=== PATIENT | male | born 1965 | race African-American/Black ===

== ENCOUNTER 2017-08-23 10:47 | Inpatient (IN) | payer BC ==
[2017-08-23 12:11] VITALS: BMI 29.2
--- NOTE | 2017-08-23 14:53 | HP ---
CIWA Score - CIWA Score Nausea/Vomitin Muscle Tremors: 3 Anxiety: 3 Agitation: 3 Paroxysmal Sweats: 2 Orientation: 0-Oriented Tacttile Disturbances: 2-Mild Itch/Numbness/Burn Auditory Disturbances: 2-Mild Harshness/Frighten Visual Disturbances: 2-Mild Sensitivity Headache: 2-Mild CIWA-Ar Total Score: 22 Admission ROS [facility] - HPI Chief Complaint: I NEED HELP TO STOP DRINKING ALCOHOL,CRACK,PCP Allergies/Adverse Reactions: Allergies Allergy/AdvReac Type Severity Reaction Status Date / Time No Known Allergies Allergy Verified 08/23/17 14:40 History of Present Illness: THIS 51 YEARS OLD MALE WITH ALCOHOL,CRACK,CRYSTAL METH,SEEKING DETOX,WITHDRAWAL SYMPTOM,LAST TREATMENT 2015 IN [place], HISTORY OF HTN NON COMPLIANCE HIV SINCE 1984 ANXIETY,DEPRESSION LONGEST PERIOD OF SOBRIETY 2 MONTHS Exam Limitations: No Limitations - Ebola screening Have you traveled outside of the country in the last 21 days: No (N) Have you had contact with anyone from an Ebola affected area: No Have you been sick,other than usual withdrawal symptoms: No - Review of Systems Constitutional: Loss of Appetite, Malaise, Night Sweats, Changes in sleep, Weakness, Unintentional Wgt. Loss EENT: reports: Nose Congestion Respiratory: reports: No Symptoms reported Cardiac: reports: Palpitations GI: reports: Diarrhea, Nausea, Vomiting, Abdominal cramping : reports: No Symptoms Reported Musculoskeletal: reports: Back Pain, Muscle Pain Integumentary: reports: Dryness Neuro: reports: Tremors Endocrine: reports: No Symptoms Reported Hematology: reports: No Symptoms Reported, Other Psychiatric: reports: No Sypmtoms Reported, Judgement Intact, Mood/Affect Appropiate, Orientated x3, Anxious, Depressed Patient History - Patient Medical History Hx Anemia: No Hx Asthma: No Hx Chronic Obstructive Pulmonary Disease (COPD): No Hx Cancer: No Hx Cardiac Disorders: No Hx Congestive Heart Failure: No Hx Hypertension: Yes (NON COMPLIANCE) Hx Hypercholesterolemia: No Hx Pacemaker: No HX Cerebrovascular Accident: No Hx Seizures: No Hx Dementia: No Hx Diabetes: No Hx Gastrointestinal Disorders: No Hx Liver Disease: Yes (HEPATITIS C) Hx Genitourinary Disorders: No Hx Sexually Transmitted Disorders: Yes (SYHILIS) Hx Renal Disease (ESRD): No Hx Thyroid Disease: No Hx Human Immunodeficiency Virus (HIV): Yes (SINCE 1984) Hx Hepatitis C: Yes (TREATED) Hx Depression: Yes (ANXIETY) Hx Suicide Attempt: No Hx Bipolar Disorder: No Hx Schizophrenia: No Other Medical History: NO SUICIDAL,NOHOMICIDAL - Patient Surgical History Past Surgical History: No - PPD History Previous Implant?: Yes Documented Results: Negative w/o proof Implanted On Prior [facility] Admission?: No PPD to be Administered?: Yes - Smoking Cessation Smoking history: Never smoked - Substance & Tx. History Hx Alcohol Use: Yes Hx Substance Use: Yes Substance Use Type: Alcohol, Cocaine - Substances Abused Alcohol Route: Oral Frequency: Daily Amount used: 6PK AND UP BEER Age of first use: 20 Date of Last Use: 08/23/17 Marijuana/Hashish Route: Smoking Frequency: 1-3 times last 30 days Amount used: 1 joint Age of first use: 20 Date of Last Use: 08/16/17 Crystal Meth Route: Injection Frequency: Daily Amount used: 1 bag Age of first use: 49 Date of Last Use: 08/21/17 Family Disease History - Family Disease History Family History: Denies Admission Physical Exam [facility] - Vital Signs Vital Signs: Vital Signs - 24 hr 08/23/17 12:09 Temperature 98.2 F Pulse Rate 96 H Respiratory 20 Rate Blood Pressure 165/132 - Physical General Appearance: Yes: Moderate Distress, Tremorous, Irritable, Sweating, Anxious HEENTM: Yes: Normal ENT Inspection, PRECIOUS, Pharynx Normal Respiratory: Yes: Lungs Clear, Normal Breath Sounds, No Respiratory Distress Neck: Yes: Within Normal Limits, Supple, Trachea in good position Breast: Yes: Within Normal Limits Cardiology: Yes: Within Normal Limits, Regular Rhythm, Regular Rate, S1, S2 Abdominal: Yes: Within Normal Limits, Normal Bowel Sounds, Non Tender, Soft Genitourinary: Yes: Within Normal Limits Back: Yes: Muscle Spasm Musculoskeletal: Yes: Back pain, Muscle Pain Extremities: Yes: Tremors (VARICOSE VEIN OF RIGHT LEG), Inflammation Neurological: Yes: medical collections II-XII NML intact, Fully Oriented, Alert, Motor Strength 5/5 Integumentary: Yes: Dry, Other (CELLULITIS OF LEFT FOOT AND RIGHT LEG) Lymphatic: Yes: Within Normal Limits - Diagnostic (1) Alcohol dependence with uncomplicated withdrawal Current Visit: Yes Status: Acute (2) Methamphetamine abuse Current Visit: Yes Status: Acute (3) HIV (human immunodeficiency virus infection) Current Visit: Yes Status: Acute (4) Cellulitis of left foot Current Visit: Yes Status: Acute (5) Weight loss Current Visit: Yes Status: Acute (6) Hepatitis C Current Visit: Yes Status: Acute (7) Anxiety and depression Current Visit: Yes Status: Acute Cleared for Admission [facility] - Detox or Rehab [facility] Level of Care: Medically Managed Detox Regimen/Protocol: Librium S Breath Alcohol Content Breath Alcohol Content: 0 Urine Drug Screen - Results Drug Screen Negative: No Urine Drug Screen Results: MET-Methamphetamine
[2017-08-23] MEDS ORDERED: MAGNESIUM HYDROX 2400MG/30ML ORAL SUSPENSION 30 ML CUP PO PRN (15:08)
[2017-08-23] MEDS ORDERED: chlordiazePOXIDE HCL 25 MG CAPSULE PO PRN (15:08)
[2017-08-23] MEDS ORDERED: IBUPROFEN 400 MG TABLET (FP) PO PRN (15:08)
[2017-08-23] MEDS ORDERED: hydrOXYzine PAMOATE 50 MG CAPSULE (FP) PO PRN (15:08)
[2017-08-23] MEDS ORDERED: MAGNESIUM CITRATE 300 ML BOTTLE PO PRN (15:08)
[2017-08-23] MEDS ORDERED: chlordiazePOXIDE HCL 25 MG CAPSULE PO ONE (15:08)
[2017-08-23] MEDS ORDERED: guaiFENesin/D-METHORPHAN HB 10 ML UNIT-DOSE CUPS PO PRN (15:08)
[2017-08-23] MEDS ORDERED: P-EPHED 60MG/TRIPROLIDI 2.5MG TABLET PO PRN (15:08)
[2017-08-23] MEDS ORDERED: ACETAMINOPHEN 325 MG TABLET (FP) PO PRN (15:08)
[2017-08-23] MEDS ORDERED: MAG HYDROX/AL HYDROX/SIMETH 30 ML UNIT-DOSE CUP PO PRN (15:08)
[2017-08-23] MEDS ORDERED: MENTHOL/PHENOL 1 EACH UD MM PRN (15:08)
[2017-08-23] MEDS ORDERED: LOPERAMIDE HCL 2 MG CAPSULE PO PRN (15:08)
[2017-08-23] MEDS: CEPHALEXIN MONOHYDRATE 500 MG CAPSULE (UD) PO SCH ×2 (17:36→23:05)
[2017-08-23] MEDS: chlordiazePOXIDE HCL 25 MG CAPSULE PO SCH ×2 (17:36→22:34)
[2017-08-23 22:24] LABS: URINE APPEARANCE CLEAR; URINE BILIRUBIN NEGATIVE (NEGATIVE); URINE BLOOD NEGATIVE (NEGATIVE); URINE COLOR STRAW; URINE GLUCOSE (UA) NEGATIVE (NEGATIVE); URINE KETONE NEGATIVE (NEGATIVE); URINE LEUK ESTERASE NEGATIVE (NEGATIVE); URINE NITRITE NEGATIVE (NEGATIVE); URINE PROTEIN NEGATIVE (NEGATIVE); URINE UROBILINOGEN NEGATIVE mg/dL (0.2-1.0)
[2017-08-23] MEDS: THIAMINE HCL 100 MG TABLET (FP) PO SCH (22:34)
[2017-08-24] MEDS: chlordiazePOXIDE HCL 25 MG CAPSULE PO SCH ×4 (05:09→23:04)
[2017-08-24] MEDS: CEPHALEXIN MONOHYDRATE 500 MG CAPSULE (UD) PO SCH ×4 (05:09→23:03)
[2017-08-24] MEDS: amLODIPine BESYLATE 5 MG TABLET (FP) PO SCH ×2 (05:35→10:47)
[2017-08-24] MEDS: cloNIDine HCL 0.1 MG TABLET PO PRN ×2 (07:27→18:36)
[2017-08-24] MEDS ORDERED: PRENATAL VITAMINS W/ FOLIC ACID TABLET (FP) PO SCH (10:00)
[2017-08-24] MEDS ORDERED: PATIENT'S OWN MEDICATION (NON-FORMULARY) (Emtricitabine/Tenofovir [Truvada -] 1 TAB) PO SCH (10:00)
[2017-08-24 10:11] LABS: HEMATOCRIT 40.4 % (35.4-49); HEMOGLOBIN 13.9 GM/dL (11.7-16.9); MCH 28.6 pg (25.7-33.7); MCHC 34.5 g/dl (32.0-35.9); MEAN PLT VOLUME 7.5 fl (7.5-11.1); PLATELET COUNT 352 K/MM3 (134-434); RBC 4.87 M/mm3 (4.00-5.60); RDW 14.1 % (11.9-15.9); WHITE BLOOD COUNT 5.3 K/mm3 (4.0-10.0)
[2017-08-24 10:18] LABS: ANION GAP 9 (8-16); BLOOD UREA NITROGEN 10 mg/dL (7-18); CALCIUM 8.9 mg/dL (8.5-10.1); CHLORIDE 99 mmol/L (98-107); CO2 27 mmol/L (21-32); GLUCOSE,RANDOM 94 mg/dL (74-106); POTASSIUM 4.2 mmol/L (3.5-5.1); SODIUM 135 mmol/L (136-145)
[2017-08-24 10:23] LABS: ALK PHOS 91 U/L (45-117); BILIRUBIN,TOTAL 0.5 mg/dL (0.2-1.0); CREATININE 1.1 mg/dL (0.7-1.3); SGOT/AST 16 U/L (15-37); SGPT/ALT 19 U/L (12-78); TOT PROT 7.5 g/dl (6.4-8.2)
[2017-08-24] MEDS: PATIENT'S OWN MEDICATION (NON-FORMULARY) (Raltegravir [Isentress] 400 MG) PO SCH ×3 (10:25→23:04)
[2017-08-24] MEDS: PATIENT'S OWN MEDICATION (NON-FORMULARY) (Etravirine [Intelence -] 200 MG) PO SCH ×3 (10:26→18:35)
--- NOTE | 2017-08-24 11:20 | EKG ---
Test Reason : Blood Pressure : / mmHG Vent. Rate : 085 BPM Atrial Rate : 085 BPM P-R Int : 160 ms QRS Dur : 092 ms QT Int : 390 ms P-R-T Axes : 067 -06 013 degrees QTc Int : 464 ms NORMAL SINUS RHYTHM VOLTAGE CRITERIA FOR LEFT VENTRICULAR HYPERTROPHY CANNOT RULE OUT SEPTAL INFARCT , AGE UNDETERMINED ABNORMAL ECG NO PREVIOUS ECGS AVAILABLE Confirmed by ELINOR JALLOH MD ([id number]) on 08/24/2017 11:20:23 AM Referred By: Confirmed By:ELINOR JALLOH MD
--- NOTE | 2017-08-24 12:36 | PN ---
[facility] CIWA - CIWA Score Nausea/Vomitin-No Nausea/No Vomiting Muscle Tremors: 4-Moderate,w/Arms Extend Anxiety: 4-Mod. Anxious/Guarded Agitation: 4-Moderately Restless Paroxysmal Sweats: 1-Minimal Palms Moist Orientation: 0-Oriented Tacttile Disturbances: 3-Moderate Itch/Numb/Burn Auditory Disturbances: 0-None Visual Disturbances: 0-None Headache: 0-None Present CIWA-Ar Total Score: 16 S Progress Note (SOAP) Subjective: ANXIETY,SWEATS,TREMORS,FATIGUE. Objective: 08/24/17 12:23 Vital Signs Temperature 97.0 F L 08/24/17 10:00 Pulse Rate 96 H 08/24/17 10:00 Respiratory Rate 20 08/24/17 10:00 Blood Pressure 155/109 08/24/17 10:00 O2 Sat by Pulse Oximetry (%) Laboratory Last Values WBC 5.3 K/mm3 (4.0-10.0) 08/24/17 06:00 RBC 4.87 M/mm3 (4.00-5.60) 08/24/17 06:00 Hgb 13.9 GM/dL (11.7-16.9) 08/24/17 06:00 Hct 40.4 % (35.4-49) 08/24/17 06:00 MCV 83.0 fl (80-96) 08/24/17 06:00 MCH 28.6 pg (25.7-33.7) 08/24/17 06:00 MCHC 34.5 g/dl (32.0-35.9) 08/24/17 06:00 RDW 14.1 % (11.9-15.9) 08/24/17 06:00 Plt Count 352 K/MM3 (134-434) 08/24/17 06:00 MPV 7.5 fl (7.5-11.1) 08/24/17 06:00 Sodium 135 mmol/L (136-145) L 08/24/17 06:00 Potassium 4.2 mmol/L (3.5-5.1) 08/24/17 06:00 Chloride 99 mmol/L (98-107) 08/24/17 06:00 Carbon Dioxide 27 mmol/L (21-32) 08/24/17 06:00 Anion Gap 9 (8-16) 08/24/17 06:00 BUN 10 mg/dL (7-18) 08/24/17 06:00 Creatinine 1.1 mg/dL (0.7-1.3) 08/24/17 06:00 Creat Clearance w eGFR > 60 (>60) 08/24/17 06:00 Random Glucose 94 mg/dL (74-106) 08/24/17 06:00 Calcium 8.9 mg/dL (8.5-10.1) 08/24/17 06:00 Total Bilirubin 0.5 mg/dL (0.2-1.0) 08/24/17 06:00 AST 16 U/L (15-37) 08/24/17 06:00 ALT 19 U/L (12-78) 08/24/17 06:00 Alkaline Phosphatase 91 U/L (45-117) 08/24/17 06:00 Total Protein 7.5 g/dl (6.4-8.2) 08/24/17 06:00 Albumin 4.0 g/dl (3.4-5.0) 08/24/17 06:00 Urine Color Straw 08/23/17 21:00 Urine Appearance Clear 08/23/17 21:00 Urine pH 7.0 (5.0-8.0) 08/23/17 21:00 Ur Specific [place] 1.010 (1.001-1.035) 08/23/17 21:00 Urine Protein Negative (NEGATIVE) 08/23/17 21:00 Urine Glucose (UA) Negative (NEGATIVE) 08/23/17 21:00 Urine Ketones Negative (NEGATIVE) 08/23/17 21:00 Urine Blood Negative (NEGATIVE) 08/23/17 21:00 Urine Nitrite Negative (NEGATIVE) 08/23/17 21:00 Urine Bilirubin Negative (NEGATIVE) 08/23/17 21:00 Urine Urobilinogen Negative mg/dL (0.2-1.0) 08/23/17 21:00 Ur Leukocyte Esterase Negative (NEGATIVE) 08/23/17 21:00 RPR Titer Nonreactive (NONREACTIVE) 08/24/17 06:00 Assessment: 08/24/17 12:25 WITHDRAWAL SX Plan: CONTINUE DETOX INCREASE NORVASC TO 10 MG PO DAILY ADDITIONAL LIBRIUM 50 MG PO AT 14:30 TODAY
--- NOTE | 2017-08-24 13:35 | CONSULT ---
[facility] Psychiatric Consult - Data Date of interview: 08/24/17 Admission source: [facility] Identifying data: First admission to [facility] for this 51 y/o AA male seeking detox treatment on [address] for alcohol,cocaine and methamphetamine dependence.Patient is single without children,homeless and employed. Substance Abuse History: Confirmed by patient in this interview.Smoking history : Never smoked. - Substance & Tx. History. Hx Alcohol Use: Yes. Hx Substance Use: Yes. Substance Use Type: Alcohol, Cocaine. - Substances Abused. Alcohol. Route: Oral. Frequency: Daily. Amount used: 6PK AND UP BEER. Age of first use: 20. Date of Last Use: 08/23/17. Marijuana/Hashish. Route: Smoking. Frequency: 1-3 times last 30 days. Amount used: 1 joint. Age of first use: 20. Date of Last Use: 08/16/17. Crystal Meth. Route: Injection. Frequency: Daily. Amount used: 1 bag. Age of first use: 49. Date of Last Use: 08/21/17 Medical History: HIV infection since 1984,hepatitis C and hypertension. Psychiatric History: Patient denies. Physical/Sexual Abuse/Trauma History: Patient denies. Additional Comment: Urine Drug Screen Results: MET-Methamphetamine.Noted. Mental Status Exam - Mental Status Exam Alert and Oriented to: Time, Place, Person Cognitive Function: Good Patient Appearance: Well Groomed Mood: Hopeful, Euthymic Affect: Appropriate, Normal Range Patient Behavior: Fatigued, Appropriate, Cooperative Speech Pattern: Clear, Appropriate Voice Loudness: Normal Thought Process: Intact, Goal Oriented Thought Disorder: Not Present Hallucinations: Denies Suicidal Ideation: Denies Homicidal Ideation: Denies Insight/Judgement: Poor Sleep: Poorly, Difficulty falling asleep Appetite: Good Muscle strength/Tone: Normal Gait/Station: Normal Psychiatric Findings - Problem List ([place] 1, 2,3) (1) Alcohol dependence with uncomplicated withdrawal Current Visit: Yes Status: Acute (2) Methamphetamine dependence Current Visit: Yes Status: Acute (3) Insomnia Current Visit: Yes Status: Acute - Initial Treatment Plan Initial Treatment Plan: Psychoeducation.Detoxification.Sleep hygiene.Ambien 10 mg po hs prn.Patint is informed of the risk of parasomnias.He agrees with this careplan.Observation.
[2017-08-24] MEDS ORDERED: chlordiazePOXIDE HCL 25 MG CAPSULE PO ONE (14:00)
[2017-08-24] MEDS ORDERED: ZOLPIDEM TARTRATE 10 MG TABLET (PARK CARE ONLY) PO PRN (22:00)
[2017-08-24] MEDS: THIAMINE HCL 100 MG TABLET (FP) PO SCH (23:04)
[2017-08-25] MEDS ORDERED: amLODIPine BESYLATE 5 MG TABLET (FP) PO SCH (05:14)
[2017-08-25] MEDS: CEPHALEXIN MONOHYDRATE 500 MG CAPSULE (UD) PO SCH (05:25)
[2017-08-25] MEDS: chlordiazePOXIDE HCL 25 MG CAPSULE PO SCH (05:25)
[2017-08-25 09:21] VITALS: BP 162/113; PULSE 98; TEMP 97.1
[2017-08-25] MEDS ORDERED: amLODIPine BESYLATE 10 MG TABLET (FP) PO SCH ×2 (10:00)
--- NOTE | 2017-08-25 13:45 | DS ---
[facility] Detox Discharge Summary Admission Date: 08/23/17 Discharge Date: 08/25/17 - History Present History: Alcohol Dependence Additional Comments: PT WALKED OFF UNIT AMA. PT CURRENTLY TAKING HOME MEDS. 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 SEE HOME PHARMACY LIST. RX FOR KEFLEX 500 MG PO Q6H #24 TABS SENT TO HIS HOME [facility] IN [place], [place]. Pertinent Past History: SEE DX BELOW - Physical Exam Results Vital Signs: Vital Signs Temperature 97.1 F L 08/25/17 09:21 Pulse Rate 98 H 08/25/17 09:21 Respiratory Rate 20 08/25/17 09:21 Blood Pressure 162/113 08/25/17 09:21 O2 Sat by Pulse Oximetry (%) Pertinent Admission Physical Exam Findings: WITHDRAWAL SX Laboratory Last Values WBC 5.3 K/mm3 (4.0-10.0) 08/24/17 06:00 RBC 4.87 M/mm3 (4.00-5.60) 08/24/17 06:00 Hgb 13.9 GM/dL (11.7-16.9) 08/24/17 06:00 Hct 40.4 % (35.4-49) 08/24/17 06:00 MCV 83.0 fl (80-96) 08/24/17 06:00 MCH 28.6 pg (25.7-33.7) 08/24/17 06:00 MCHC 34.5 g/dl (32.0-35.9) 08/24/17 06:00 RDW 14.1 % (11.9-15.9) 08/24/17 06:00 Plt Count 352 K/MM3 (134-434) 08/24/17 06:00 MPV 7.5 fl (7.5-11.1) 08/24/17 06:00 Sodium 135 mmol/L (136-145) L 08/24/17 06:00 Potassium 4.2 mmol/L (3.5-5.1) 08/24/17 06:00 Chloride 99 mmol/L (98-107) 08/24/17 06:00 Carbon Dioxide 27 mmol/L (21-32) 08/24/17 06:00 Anion Gap 9 (8-16) 08/24/17 06:00 BUN 10 mg/dL (7-18) 08/24/17 06:00 Creatinine 1.1 mg/dL (0.7-1.3) 08/24/17 06:00 Creat Clearance w eGFR > 60 (>60) 08/24/17 06:00 Random Glucose 94 mg/dL (74-106) 08/24/17 06:00 Calcium 8.9 mg/dL (8.5-10.1) 08/24/17 06:00 Total Bilirubin 0.5 mg/dL (0.2-1.0) 08/24/17 06:00 AST 16 U/L (15-37) 08/24/17 06:00 ALT 19 U/L (12-78) 08/24/17 06:00 Alkaline Phosphatase 91 U/L (45-117) 08/24/17 06:00 Total Protein 7.5 g/dl (6.4-8.2) 08/24/17 06:00 Albumin 4.0 g/dl (3.4-5.0) 08/24/17 06:00 Urine Color Straw 08/23/17 21:00 Urine Appearance Clear 08/23/17 21:00 Urine pH 7.0 (5.0-8.0) 08/23/17 21:00 Ur Specific [place] 1.010 (1.001-1.035) 08/23/17 21:00 Urine Protein Negative (NEGATIVE) 08/23/17 21:00 Urine Glucose (UA) Negative (NEGATIVE) 08/23/17 21:00 Urine Ketones Negative (NEGATIVE) 08/23/17 21:00 Urine Blood Negative (NEGATIVE) 08/23/17 21:00 Urine Nitrite Negative (NEGATIVE) 08/23/17 21:00 Urine Bilirubin Negative (NEGATIVE) 08/23/17 21:00 Urine Urobilinogen Negative mg/dL (0.2-1.0) 08/23/17 21:00 Ur Leukocyte Esterase Negative (NEGATIVE) 08/23/17 21:00 RPR Titer Nonreactive (NONREACTIVE) 08/24/17 06:00 - Medication Discharge Medications: Ambulatory Orders Emtricitabine/Tenofovir [Truvada] 1 tab PO DAILY 08/23/17 Etravirine [Intelence -] 200 mg PO BID 08/23/17 Raltegravir [Isentress -] 400 mg PO BID 08/23/17 Amlodipine Besylate [Amlodipine Besylate] 1 tab PO DAILY 08/24/17 Cephalexin Monohydrate [Keflex -] 500 mg PO Q6HPO #24 capsule 08/25/17 - Diagnosis (1) Alcohol dependence with uncomplicated withdrawal Status: Acute (2) HIV (human immunodeficiency virus infection) Status: Chronic (3) Hepatitis C Status: Chronic Qualifiers: Viral hepatitis chronicity: chronic (4) Cellulitis of left foot Status: Acute (5) Methamphetamine abuse Status: Acute - AMA Did Patient Leave Against Medical Advice: Yes (AMA)
[2017-08-25] MEDS ORDERED: chlordiazePOXIDE 5 MG CAPSULE PO SCH (17:00)
[2017-08-26] MEDS ORDERED: chlordiazePOXIDE HCL 10 MG CAPSULE PO SCH (17:00)
== END 2017-08-25 09:58 | disposition left against medical advice (07) | DRG 894 ==
LOC: YASAS 10:47 → Y3N 15:06
PROVIDERS: ADMIT Internal Medicine; ATTEND Internal Medicine
PROC: HZ2ZZZZ Detoxification Services for Substance Abuse Treatment (ICD-10-PCS; principal; 2017-08-23)
DX: F10.230 Alcohol dependence with withdrawal, uncomplicated (principal); L03.116 Cellulitis of left lower limb; F15.10 Other stimulant abuse, uncomplicated; F41.8 Other specified anxiety disorders; Z21 Asymptomatic human immunodeficiency virus [HIV] infection status; B18.2 Chronic viral hepatitis C; I10 Essential (primary) hypertension; Z87.438 Personal history of other diseases of male genital organs; Z91.14 Patient's other noncompliance with medication regimen; Z87.898 Personal history of other specified conditions
CPT/HCPCS: 36415; 80053; 81003; 85027; 86593; 93005; 93010; J0735